=== PATIENT | male | born 1970 | race Caucasian/White ===

== ENCOUNTER 2021-11-30 08:38 | Outpatient (CLI) | payer BC, SELFPAY ==
[2021-11-30 10:29] LABS: Albumin* 4.2 g/dL (3.3-5.0); Chloride* 101 mmol/L (96-114)
[2021-11-30 10:30] LABS: Potassium* 5.3 mmol/L (3.6-5.1); Sodium* 137 mmol/L (135-149)
[2021-11-30 10:32] LABS: Alkaline Phosphatase* 113 U/L (40-150); Aspartate Amino Transferase* 17 U/L (12-35); Bilirubin Total* 1.6 mg/dL (0.1-1.5); Blood Urea Nitrogen* 13 mg/dL (5-24); Carbon Dioxide* 28 mmol/L (20-32); Creatinine* 0.8 mg/dL (0.5-1.5); Estimated Glomerular Filt Rate 108 ml/min; Total Protein* 6.8 g/dL (6.0-8.3)
[2021-11-30 10:33] LABS: Alanine Aminotransferase* 17 U/L (4-50); Calcium* 9.7 mg/dL (8.4-10.6)
[2021-11-30 10:43] LABS: Glucose* 351 mg/dL (60-115)
[2021-11-30 11:38] LABS: Free T4 Free Thyroxine* 1.23 ng/dL (0.70-1.85)
== END 2021-11-30 08:39 | disposition home or self-care (01) ==
PROVIDERS: PCP Internal Medicine; Visit Provider Internal Medicine
DX: E03.9 Hypothyroidism, unspecified (principal); E11.9 Type 2 diabetes mellitus without complications; F32.A Depression, unspecified; M10.9 Gout, unspecified
CPT/HCPCS: 80053; 84439; 84443

== ENCOUNTER 2022-01-18 07:53 | Outpatient (CLI) | payer BC, SELFPAY ==
[2022-01-18 09:14] LABS: Chloride* 105 mmol/L (96-114)
[2022-01-18 09:15] LABS: Potassium* 4.4 mmol/L (3.6-5.1); Sodium* 142 mmol/L (135-149)
[2022-01-18 09:17] LABS: Carbon Dioxide* 25 mmol/L (20-32); Creatinine* 0.9 mg/dL (0.5-1.5); Estimated Glomerular Filt Rate 105 ml/min
[2022-01-18 09:18] LABS: Blood Urea Nitrogen* 17 mg/dL (5-24); Calcium* 9.3 mg/dL (8.4-10.6); Glucose* 115 mg/dL (60-115)
== END 2022-01-18 07:54 | disposition home or self-care (01) ==
PROVIDERS: PCP Internal Medicine; Visit Provider Internal Medicine
DX: E11.9 Type 2 diabetes mellitus without complications (principal)
CPT/HCPCS: 80048

== ENCOUNTER 2022-05-09 07:29 | Outpatient (CLI) | payer OTHER, SELFPAY ==
[2022-05-09 09:25] LABS: Albumin* 4.1 g/dL (3.3-5.0); Chloride* 107 mmol/L (96-114); Sodium* 138 mmol/L (135-149)
[2022-05-09 09:26] LABS: Potassium* 4.5 mmol/L (3.6-5.1)
[2022-05-09 09:28] LABS: Alanine Aminotransferase* 26 U/L (4-50); Alkaline Phosphatase* 63 U/L (40-150); Aspartate Amino Transferase* 24 U/L (12-35); Blood Urea Nitrogen* 16 mg/dL (5-24); Carbon Dioxide* 25 mmol/L (20-32); Cholesterol* 314 mg/dL (90-199); Creatinine* 0.9 mg/dL (0.5-1.5); Estimated Glomerular Filt Rate 105 ml/min; Glucose* 122 mg/dL (60-115); Total Protein* 6.7 g/dL (6.0-8.3)
[2022-05-09 09:29] LABS: Calcium* 9.2 mg/dL (8.4-10.6); HDL Cholesterol* 64 mg/dL (>=40); LDL Cholesterol Calculated 153 mg/dL (<100)
[2022-05-09 09:34] LABS: Triglycerides* 484 mg/dL (40-149)
[2022-05-09 11:58] LABS: Creatinine Urine 80.2 mg/dL
[2022-05-09 12:02] LABS: Microalbumin Creatinine Ratio 10 mg/g (0-30); Microalbumin Urine < 1 mg/dL
== END 2022-05-09 07:30 | disposition home or self-care (01) ==
LOC: NFLDREF 07:29
PROVIDERS: PCP Internal Medicine; Visit Provider Internal Medicine
DX: E11.9 Type 2 diabetes mellitus without complications (principal); E78.5 Hyperlipidemia, unspecified; E03.9 Hypothyroidism, unspecified; M10.9 Gout, unspecified; F41.9 Anxiety disorder, unspecified
CPT/HCPCS: 80053; 80061; 82043; 82570

== ENCOUNTER 2022-10-30 07:30 | Outpatient (CLI) | payer OTHER, SELFPAY | END 2022-10-30 07:31 | disposition home or self-care (01) | LOC: NFLDREF 11-01 12:56 | PROVIDERS: PCP Internal Medicine; Referring Provider Internal Medicine; Visit Provider Internal Medicine | DX: E11.9 Type 2 diabetes mellitus without complications (principal); E78.5 Hyperlipidemia, unspecified; E03.9 Hypothyroidism, unspecified; F41.9 Anxiety disorder, unspecified | CPT/HCPCS: 80053; 80061; 82043; 82570; 84439; 84443 ==

== ENCOUNTER 2023-02-12 07:37 | Outpatient (CLI) | payer OTHER, SELFPAY | END 2023-02-12 07:38 | disposition home or self-care (01) | LOC: NFLDREF 02-16 10:09 | PROVIDERS: PCP Internal Medicine; Referring Provider Internal Medicine; Visit Provider Internal Medicine | DX: E78.5 Hyperlipidemia, unspecified (principal); E03.9 Hypothyroidism, unspecified | CPT/HCPCS: 80053; 80061 ==

== ENCOUNTER 2023-06-01 06:27 | Outpatient (CLI) | payer OTHER, SELFPAY ==
--- NOTE | 2023-06-01 07:44 | W.ANESCHARGE ---
Anesthesia Charges Start Date/Time Anesthesia Start Date: 06/01/23 Anesthesia Start Time: 07:14 Stop Date/Time Anesthesia Stop Date: 06/01/23 Anesthesia Stop Time: 07:39
--- NOTE | 2023-06-01 08:12 | W.ANESCHARGE ---
Anesthesia Charges Start Date/Time Anesthesia Start Date: 06/01/23 Anesthesia Start Time: 07:14 Stop Date/Time Anesthesia Stop Date: 06/01/23 Anesthesia Stop Time: 07:39
== END 2023-06-01 06:28 | disposition home or self-care (01) ==
LOC: OP CLINIC 06:28
PROVIDERS: PCP Internal Medicine; Visit Provider Internal Medicine
DX: Z12.11 Encounter for screening for malignant neoplasm of colon (principal); K63.5 Polyp of colon; K57.30 Diverticulosis of large intestine without perforation or abscess without bleeding; Z86.010 Personal history of colon polyps
CPT/HCPCS: 00811; 45380; 45385; 88305; J2704

== ENCOUNTER 2023-07-30 08:09 | Outpatient (CLI) | payer OTHER, SELFPAY ==
--- OUTSIDE RECORDS SUMMARY | 2023-07-30 08:12 | XMS_ITS | Clinical Summary ---
Author Name Unknown Organization [facility] Address [place], [place] [address] Care Team Providers [facility] Manager Name Role Phone Pcp, No Primary Care Provider Unavailabl e Allergies Active Allergy Reactions Criticality Noted Date Comments Allergenic Extracts 12/17/2006 Dust Mites 12/17/2006 House Dust 12/17/2006 Medications Medication Sig Dispensed Refills Start Date End Date Status fluticasone (50 mcg per actuation) nasal solution (FLONASE) Inhale 1 [place] into both nostrils once daily. 1 Bottle 0 07/03/2015 Active indomethacin (INDOCIN) 50 mg capsuleIndications:A cute idiopathic gout of left foot Take 1 capsule by mouth 3 times daily with meals. For gout. Decrease dose to twice daily, then once daily as symptoms improve. 30 capsule 0 07/03/2015 Active Active Problems Problem Noted Date Diagnosed Date Ingrowing nail 06/11/2007 Allergic rhinitis, cause unspecified Obesity, unspecified Other and unspecified hyperlipidemia Other abnormal glucose Esophageal reflux Personal history of tobacco use, presenting hazards to health Encounters Date Type Department Care Team Description 06/01/2023 Lab Requisition [facility] [phone] Slick Mcdaniel MD from Last 3 Months Immunizations Name Administration Dates Next Due Td (Age >=7 Years) 01/24/2002 Family History Medical History Relation Name Comments Cancer Other Relation Name Status Comments Other Social History Tobacco Use Types Packs/Day Years Used Date Smoking Tobacco: Every Day Cigarettes Tobacco Cessation:Ready to Q uit: No; Counseling Given: Yes Alcohol Use Standard Drinks/Week Comments Yes 0 (1 standard drink = 0.6 oz pur e alcohol) Social Connections Answer Date Recorded Frequency of Communication with Friends and Fami ly Not on file 05/10/2022 Sex and Gender Information Value Date Recorded Sex Assigned at Not on file Gender Identity Not on file Sexual Orientation Not on file Obstetrics History Last Filed Vital Signs Vital Sign Reading Time Taken Comments Blood Pressure 121/83 07/03/2015 8:48 AM CDT Pulse 76 07/03/2015 8:48 AM CDT Temperature 36.6 ??C (97.8 ??F) 07/03/2015 8:48 AM CD T Respiratory Rate - - Oxygen Saturation 94% 07/03/2015 8:48 AM CDT Inhaled Oxygen Concentration - - Weight 146.1 kg (322 lb) 07/03/2015 8:48 AM CDT Height 190 cm (6' 2.8) 12/17/2006 9:06 AM CDT Body Mass Index 40.46 12/17/2006 9:06 AM CDT Plan of Treatment Health Maintenance Due Date Last Done Comments Tdap 07/31/1983 Depression screening for age 12+ 1984 HIV for age 15-65 07/31/1987 BMI (ht and wt on same day) for age 18+ 1990 Hepatitis C screening for ag e 18-79 1990 Tetanus booster 01/25/2012 01/24/2002 Colonoscopy through age 75 2017 Lipids for age 45-75 2017 12/17/2006 Zoster (shingles) series for age 50+ (1 of 2) 2022 COVID-19 vaccine series ( - 2022- season) 2022 Influenza for age 50-64 11/25/2023 Pneumococcal series for age 6-64 Aged Out No longer eligible based on patient's age to complete this topic Procedures Procedure Name Priority Date/Time Associated Diagnosis Comments LAB TRACKING EVENT Routine 06/01/2023 7: 25 AM COLOR WORKER PATH TISSUE EXAM Routine 05/23/2023 7:00 AM COLOR WORKER LIPID PANEL Routine 12/17/2006 9:45 AM CDT Hyperlipidemia from Last 3 Months or Most Recently Relevant to Health Maintenance Results * LAB TRACKING EVENT (06/01/2023 7:25 AM COLOR WORKER) Other (Other) Client Collect / Unknown 06/01/2023 7:25 AM COLOR WORKER 06/01/2023 9:44 PM COLOR WORKER Slick Mcdaniel MD LAB BILL ONLY [facility] [address] [place] [address], * PATH TISSUE EXAM (05/23/2023 7:00 AM COLOR WORKER) Case Report Pathology Report ?Case: [id number] ? Authorizing Provider: ??Slick Mcdaniel MD ?Collected: ? 06/01/202325 ? Ordering Location: ? [facility] ?Received: ?06/02/2023622 ? Pathologist: ? Pina Singh MD ? Specimens: ?? A) - Transverse Colon Biopsy ? B) - Sigmoid Biopsy ? 06/04/2023 12:13 PM CDT [facility] Final Diagnosis A) COLON, TRANSVERSE, POLYPECTOMY: 1. Tubular adenoma 2. Negative for high grade dysplasia 3. Per the colonoscopy report: ?? a. Polyp size: 2 mm ?? b. Resection: Complete ?? c. Retrieval: Complete B) COLON, SIGMOID, POLYPECTOMIES: 1. Tubular adenomas (2) and hyperplastic polyp (1) 2. Negative for high grade dysplasia 3. Per the colonoscopy report: ?? a. Polyp sizes: 2 mm - 3 mm (2 polyps) and 6 mm (1 polyp) ?? b. Resection: Complete ?? c. Retrieval: Complete 06/04/2023 12:13 PM CDT [facility] Clinical Information Colonoscopy. Indications: High risk colon cancer surveillance-pe rsonal history of colonic polyps. Last colonoscopy May 2018. Findings: Single 2 mm polyp in the transverse, two 2 to 3 mm polyps in the sigmoid, and single 6 mm polyp in the sigmoid. All resected and retrieved. 06/04/2023 12:13 PM CDT [facility] Gross Description A) Received in formalin is a hernandez mucosal fragment measuring 8 mm in greatest dimension, which is entirely submitted in one cassette. It is labeled with the patient's name and designated colon-transver se. B) Received in formalin are 7 hernandez mucosal fragments ranging from 3 mm to 7 mm in greatest dimension, which are entirely submitted in one cassette. It is labeled with the patient's name and designated colon-sigmoid. Shannan Valladares 06/02/2023 7:51 AM 06/04/2023 12:13 PM CDT [facility] Microscopic Description The final diagnosis is based on microscopic examination of appropriate sections of all specimens. 06/04/2023 12:13 PM CDT [facility] Additional Information [facility] at [facility] - [address] [place] [address] [address] [address], [place] [address] 06/04/2023 12:13 PM CDT [facility] Other (Transverse Colon Biopsy) 06/01/2023 7:25 AM COLOR WORKER 06/02/2023 6:23 AM COLOR WORKER Specimen (specimen) (Sigmoid Biopsy) 05/23/2023 7:00 AM COLOR WORKER 06/02/2023 6:23 AM COLOR WORKER Slick Mcdaniel MD PATHOLOGY/CYTOLOGY [facility] [address] [place] [address], * (ABNORMAL) LIPID PANEL (12/17/2006 9:45 AM CDT) CHOLESTEROL,TOTAL 263(H) 110 - 199 mg/dL [facility] TRIGLYCERIDES 464(H) <150 mg/dL [facility] HDL CHOLESTEROL 39(L) >40 mg/dL [facility] CHOL/HDL RATIO 6.74(H) <4.51 [facility] LDL CHOLESTEROL Invalid LDL when Trig >400. [facility] PATIENT STATUS Fasting [facility] Blood specimen (specimen) BLOOD SPECIMEN / Unknown 12/17/2006 9:45 AM CDT 12/17/2006 9:40 AM CDT Gunner Urrutia MD CHEMISTRY Performing Organization Address [facility] Co de Phone Number [facility] [address] [place] [address] from Last 3 Months or Most Recently Relevant to Health Maintenance Care Teams Rehabilitation [facility] Manager Relationship Specialty Start Date End Date Pcp, No . PCP - General 07/03/15
== END 2023-07-30 08:10 | disposition home or self-care (01) ==
LOC: NFLDREF 08:09
PROVIDERS: PCP Internal Medicine; Visit Provider Internal Medicine
DX: E03.9 Hypothyroidism, unspecified (principal)
CPT/HCPCS: 84439; 84443

== ENCOUNTER 2024-01-07 08:11 | Outpatient (CLI) | payer OTHER, SELFPAY | END 2024-01-07 08:12 | disposition home or self-care (01) | LOC: NFLDREF 12:33 | PROVIDERS: PCP Internal Medicine; Referring Provider Internal Medicine; Visit Provider Internal Medicine | DX: E03.9 Hypothyroidism, unspecified (principal); E11.9 Type 2 diabetes mellitus without complications | CPT/HCPCS: 84443 ==

== ENCOUNTER 2024-10-20 07:25 | Outpatient (CLI) | payer OTHER, SELFPAY | END 2024-10-20 07:26 | disposition home or self-care (01) | LOC: NFLDREF 10-21 14:11 | PROVIDERS: PCP Internal Medicine; Referring Provider Internal Medicine; Visit Provider Internal Medicine | DX: E78.5 Hyperlipidemia, unspecified (principal); E11.9 Type 2 diabetes mellitus without complications | CPT/HCPCS: 80053; 80061; 82043; 82570 ==